=== PATIENT | female | born 1955 | race Caucasian/White ===

== ENCOUNTER 2018-06-19 23:42 | Emergency (ER) | payer SELFPAY ==
[~2018-06-19] VITALS: Ht 157.5 cm; Wt 91.9 kg
[2018-06-19 23:47] VITALS: Ht 157.5 cm; Wt 91.9 kg
[2018-06-20] MEDS ORDERED: ONDANSETRON (ODT) 4 MG TAB ODT STA (01:19)
[2018-06-20] MEDS ORDERED: PRED20TA PO (01:21)
[2018-06-20] MEDS ORDERED: ACYC800T5 PO (01:21)
[2018-06-20] MEDS ORDERED: HYDR-4011 PO (01:21)
[2018-06-20] MEDS ORDERED: SILV20CR12 TOP (01:21)
--- NOTE | 2018-06-20 01:28 | ERD ---
ER Documentation Chief Complaint Chief Complaint JANE-BLISTERS ON ABD AND STOMACH FROM PUTTING HOT PACKS X3DAYS HPI 62-year-old female presenting with pain to right abdomen. 3 days ago patient had a irritation within the flank region and she applied icy hot with salon pus patches. Patient noticed that there is blisters that developed with continued pain. She has not been any medication or cream on the site. Denies other medical problems. NKDA. Surgical history denies. Social history denies ROS All systems reviewed and are negative except as per history of present illness. Medications Home Meds Active Scripts Hydrocodone/Acetaminophen ([place] 5-325 Tablet) 1 Each Tablet, 1 TAB PO Q6H PRN for PAIN, #7 TAB Prov:SILVIA HOOPER PA-C 06/20/18 Acyclovir* (Zovirax*) 800 Mg Tablet, 800 MG PO 5 TIMES DAILY for 7 Days, TAB Prov:SILVIA HOOPER PA-C 06/20/18 Prednisone* (Prednisone*) 20 Mg Tab, 40 MG PO DAILY for 4 Days, TAB Prov:SILVIA HOOPER PA-C 06/20/18 Silver Sulfadiazine* (Silvadene*) 1% - 20 Gm Cream.gm., 1 APPLIC TOP DAILY, #1 TUB Prov:SILVIA HOOPER PA-C 06/20/18 Allergies Allergies: Coded Allergies: No Known Allergy (Unverified , 12/03/12) PMhx/Soc Medical and Surgical Hx: pt denies Medical Hx, pt denies Surgical Hx Hx Alcohol Use: No Hx Substance Use: No Hx Tobacco Use: No Smoking Status: Never smoker FmHx Family History: No diabetes, No coronary disease, No other Physical Exam Vitals Vital Signs Date Temp Pulse Resp B/P (MAP) Pulse Ox O2 O2 Flow FiO2 Time Delivery Rate 06/19/18 98.6 68 19 135/69 96 23:47 (91) Physical Exam GENERAL: The patient is well-appearing, well-nourished, in no acute distress CHEST: Clear to auscultation bilaterally. There are no rales, wheezes or rhonchi. HEART: Regular rate and rhythm. No murmurs, clicks, rubs or gallops. No S3 or S4. SKIN: Dermatomal rash noted to the right flank with collections of blisters noted erythema noted to the base of the rash. Pustules. Results 24 hrs Current Medications Medications Dose Sig/Maranda Start Time Status Last (Trade) Ordered Route PRN Stop Time Admin Dose Reason Admin 1 tab ONCE ONCE 06/20/18 Acetaminophen PO 01:30 06/20/18 / 01:31 Hydrocodone Bitart ([place] (5/325)) Ondansetron 4 mg ONCE STAT 06/20/18 DC HCl (Zofran ODT 01:19 06/20/18 Odt) 01:20 Prednisone 60 mg ONCE ONCE 06/20/18 (Prednisone) PO 01:30 06/20/18 01:31 Procedures/MDM ER course: Prednisone and [place] given ED. MDM: 62-year-old female presenting with blisters noted to right flank. Patient is convinced that her rash is not shingles and it is because of her use of salon pus medications. I have believe patient has shingles which is been aggravated by her use of medications so we will treat for both skin jane and she will infection. I have low suspicion for life-threatening rash. I have low suspicion for concerning burn wound. She is discharged stricter precautions and told to follow-up with primary care within 1-2 days for close evaluation. All questions answered at discharge Departure Diagnosis: Primary Impression: Blister Condition: Stable Patient Instructions: Blister Referrals: [facility] YOU HAVE RECEIVED A MEDICAL SCREENING EXAM AND THE RESULTS INDICATE THAT YOU DO NOT HAVE A CONDITION THAT REQUIRES URGENT TREATMENT IN THE EMERGENCY DEPARTMENT. FURTHER EVALUATION AND TREATMENT OF YOUR CONDITION CAN WAIT UNTIL YOU ARE SEEN IN YOUR DOCTORS OFFICE WITHIN THE NEXT 1-2 DAYS. IT IS YOUR RESPONSIBILITY TO MAKE AN APPOINTMENT FOR FOLOW-UP CARE. IF YOU HAVE A PRIMARY DOCTOR --you should call your primary doctor and schedule an appointment IF YOU DO NOT HAVE A PRIMARY DOCTOR YOU CAN CALL OUR PHYSICIAN REFERRAL HOTLINE AT IF YOU CAN NOT AFFORD TO SEE A PHYSICIAN YOU CAN CHOSE FROM THE FOLLOWING [facility] [address] [facility] [address] [facility] [place] [address] [facility] [address] [facility] [facility] [place] [address] [facility]. [facility] [address] Additional Instructions: FOLLOW UP WITH YOUR PRIMARY CARE PHYSICIAN TOMORROW.Return to this facility if you are not improving as expected. SILVIA HOOPER PA-C Jun 20, 2018 01:28
[2018-06-20] MEDS ORDERED: HYDROCODONE/APAP (5/325) TAB PO ONE (01:30)
[2018-06-20] MEDS ORDERED: predniSONE 20 MG TAB PO ONE (01:30)
[2018-06-20 01:50] VITALS: BP 130/70; PULSE 68; RESP 15
== END 2018-06-20 01:50 | disposition home or self-care (01) ==
LOC: FTE 23:42
DX: S30.821A Blister (nonthermal) of abdominal wall, initial encounter (principal); X58.XXXA Exposure to other specified factors, initial encounter; Y92.9 Unspecified place or not applicable
CPT/HCPCS: 99283; J7512